=== PATIENT | female | born 1970 | race Caucasian/White ===

== ENCOUNTER 2024-09-08 10:02 | Outpatient (CLI) | payer OTHER, SELFPAY ==
--- NOTE | ~2024-09-08 | US_ITS ---
Limited Abdominal Sonogram: Real-time sonographic imaging of the right upper quadrant was performed. Clinical History: Abnormal serum enzyme levels Findings: The liver appears normal with no evidence of mass lesion or bile duct dilatation. Main por kyree vein demonstrates normal direction of flow. The gallbladder is well distended, and appears normal with no evidence of gallstone or wall thickening. The common bile duct measures 5 mm. The visualize d pancreas, aorta, and IVC are unremarkable. Impression: No significant abnormality seen. Reviewed, dictated and finalized at location M. Impression: No significant abnormality seen.
--- OUTSIDE RECORDS SUMMARY | 2024-09-08 11:22 | XMS_ITS | Clinical Summary ---
Author Organization [facility] [facility] Address [address] [place] [address] Care Team Providers Care General Road Supervisor Name Role Phone Arlene Amaya MD Primary Care Provider [phone] Allergies No known active allergies Medications levothyroxine 50 mcg tablet Take 50 mcg by mouth daily. Active Active Problems Problem Noted Date Diagnosed Date Menopausal and female climacteric states 020 Acquired hypothyroidism 12/08/2018 Encounters Date Type Department Care Team Description 08/05/2024 External Device Data [facility] Provider, Abstract 07/28/2024 External Device Data [facility] Provider, Abstract 07/28/2024 External Device Data [facility] Provider, Abstract 07/25/2024 External Device Data [facility] Provider, Abstract 07/24/2024 External Device Data [facility] Provider, Abstract 07/21/2024 External Device Data [facility] Provider, Abstract 07/07/2024 External Device Data [facility] Provider, Abstract 06/10/2024 External Device Data [facility] Provider, Abstract 06/10/2024 External Device Data [facility] Provider, Abstract from Last 3 Months Family History Medical History Relation Name Comments High Cholesterol Father Prostate Cancer Father Heart Disease Maternal Grandfather Mango COPD Maternal Grandmother COPD Mother Gina Diabetes Mother Gina Hypertension Mother Gina Heart Disease Paternal Grandfather Victorino Tuberculosis Paternal Grandmother Relation Name Status Comments Brother 1 Alive Brother 2 Alive Father Alive Maternal Grandfather Mango Maternal Grandmother Mother Gina Alive Paternal Grandfather Victorino Paternal Grandmother Sister 1 Alive Sister 2 Alive Sister 3 Alive Sister 4 Alive Son 1 Alive Son 2 Alive Social History Tobacco Use Types Packs/Day Years Used Date Smoking Tobacco: Never Smokeless Tobacco: Never Alcohol Use Standard Drinks/Week Comments Yes 2 (1 standard drink = 0.6 oz pur e alcohol) Moderate Feeling Safe Answer Date Recorded Within the last year, have y ou been afraid of your partner or ex-partner? No 12/08/2018 Within the last year, have y ou been humiliated or emotionally abused in other ways by your partner or ex-partner? No Within the last year, have y ou been kicked, hit, slapped, or otherwise physically hurt by your partner or ex-partner? No 12/08/2018 Within the last year, have y ou been raped or forced to have any kind of sexual activity by your partner or ex-partner? No 12/08/2018 Social Connections Answer Date Recorded In a typical week, how many times do you talk on the phone with family, friends, or neighbors? More than three times a week 12/08/2018 How often do you get togethe r with friends or relatives? More than three times a week 12/08/2018 How often do you attend chur or muslim services? More than 4 times per year 12/08/2018 Do you belong to any clubs o r organizations such as evangelical groups, unions, fraternal or athletic groups, or school groups? Yes 12/08/2018 How often do you attend meet ings of the clubs or organizations you belong to? Never 12/08/2018 Are you , , di vorced, , never , or living with a partner? 12/08/2018 Financial Resource Strain Answer Date R ecorded How hard is it for you to pa y for the very basics like food, housing, medical care, and heating? Not hard at all 12/08/2018 Food Insecurity Answer Date Recorded Within the past 12 months, y ou worried that your food would run out before you got the money to buy more. Never true 12/09/19 19 Within the past 12 months, t he food you bought just didn't last and you didn't have money to get more. Never true 12/08/2018 Transportation Needs Answer Date Record ed In the past 12 months, has l ack of transportation kept you from medical appointments or from getting medications? No 11/18 In the past 12 months, has l ack of transportation kept you from meetings, work, or from getting things needed for daily living? No 12/08/2018 Comments No Sex and Gender Information Value Date Recorded Sex Assigned at Not on file Legal Sex Female 10:49 PM CDT Gender Identity Not on file Sexual Orientation Not on file Last Filed Vital Signs Vital Sign Reading Time Taken Comments Blood Pressure 112/84 03/05/2024 9:02 AM CDT Pulse - - Temperature - - Respiratory Rate - - Oxygen Saturation - - Inhaled Oxygen Concentration - - Weight 64.9 kg (143 lb) 03/05/2024 9:02 AM CDT Height 162.6 cm (5' 4 ) 03/05/2024 9:02 AM CDT Body Mass Index 24.55 03/05/2024 9:02 AM CDT Plan of Treatment Upcoming Encounters Date Type Department Care Team (Late st Contact Info) Description 03/11/2025 9:00 AM CDT Office Visit [facility] [address] [address] [facility] [address] [place] [address] [place] [address] [facility] [address] [place] [address] Health Maintenance Due Date Last Done Comments DTAP/TDAP/TD VACCINES (1 - Tdap) 02/15/1987 HEPATITIS B VACCINES (1 of 3 - 19+ 3-dose series) 02/15/1987 COLORECTAL SCREENING 02/15/2013 Colorectal Cancer Screening 02/15/2013 FIT-DNA Q 3 years 02/15/2013 FIT/FOBT Q 1 year 02/15/2013 Flex Sig/CT Colonography Q 5 years 02/15/2013 ZOSTER VACCINE (1 of 2) 02/15/2018 INFLUENZA VACCINE (#1) 2023 PAP SMEAR 02/26/2025 02/26/2022, 01/20, 12/08/2018 BREAST CANCER SCREENING 03/14/2025 03/14/20 24, 03/09/2023, 03/02/2022, Additional history exists CERVICAL CANCER SCREENING 02/26/2027 HPV/Cotest (21-29) 02/26/2027 02/26/2022, 2021 HPV/Cotest (30-65) 02/26/2027 02/26/2022, 2021 Procedures Procedure Name Priority Date/Time Associated Diagnosis Comments MAMMO 3D JAJA SCREEN BILAT W OR WO CAD Routine 03/14/2024 9:52 AM CDT Encounter for screening mammogram for breast cancer CERV/VAG CYTO AGE BASED SCREEN PAP Routine 02/26/2022 3:39 PM CDT Pap smear for cervical cancer screening from Last 3 Months or Most Recently Relevant to Health Maintenance Results * MAMMO SCRN BILAT 3D JAJA W OR WO CAD (03/14/2024 9:52 AM CDT) Anatomical Region Laterality Modality Breast Bilateral Mammography 03/14/2024 9:52 AM CDT Impressions 03/14/2024 5:23 PM CDT IMPRESSION: No mammographic evidence of malignancy. RECOMMENDATIONS: Routine screening mammogram in one year. DICTATION LOCATION: [facility] Narrative 03/14/2024 5:23 PM CDT MAMMO 3D JAJA SCREEN BILAT W OR WO CAD DATE: 03/14/2024 9:52 AM HISTORY: Routine screening. TECHNIQUE: Full-field digital craniocaudal and mediolateral oblique projections of both breasts were obtained. Low-dose full-field digital breast tomosynthesis examination was performed with 3D acquisitions. Examination is read in conjunction with computer aided detection. COMPARISON: Mammograms dating back to 2019 BREAST COMPOSITION: There are scattered areas of fibroglandular density. FINDINGS: No suspicious mass, suspicious microcalcifications, or architectural distortion in either breast is identified. Since the prior study, there has been no significant interval change. The computer aided diagnosis detects no significant abnormality. OVERALL FINAL ASSESSMENT: BI-RADS CATEGORY 1 : Negative Procedure Note Sherie Latif MD - 03/14/2024 MAMMO 3D JAJA SCREEN BILAT W OR WO CAD DATE: 03/14/2024 9:52 AM HISTORY: Routine screening. TECHNIQUE: Full-field digital craniocaudal and mediolateral oblique projections of both breasts were obtained. Low-dose full-field digital breast tomosynthesis examination was performed with 3D acquisitions. Examination is read in conjunction with computer aided detection. COMPARISON: Mammograms dating back to 2019 BREAST COMPOSITION: There are scattered areas of fibroglandular density. FINDINGS: No suspicious mass, suspicious microcalcifications, or architectural distortion in either breast is identified. Since the prior study, there has been no significant interval change. The computer aided diagnosis detects no significant abnormality. OVERALL FINAL ASSESSMENT: BI-RADS CATEGORY 1 : Negative IMPRESSION: No mammographic evidence of malignancy. RECOMMENDATIONS: Routine screening mammogram in one year. DICTATION LOCATION: [facility] Lorelei Love MD MAMMO ORDERABLES Final Result * CERV/VAG CYTO AGE BASED SCREEN PAP (02/26/2022 3:39 PM CDT) COMMENT (PAP): [facility] [place] Comment: This order for age-based cervical cancer and STI screening follows ACOG guidelines(PB 168, 140, CRF031). See individual assays for performing site location. CLINICAL INFORMATION [facility] [place] Comment:None given LAST MENSTRUAL PERIOD [facility] [place] Comment:NONE GIVEN PREV PAP: [facility] [place] Comment:NONE GIVEN PREV BX: [facility] [place] Comment:NONE GIVEN SOURCE [facility] [place] Comment:Endocervix ADEQUACY: [facility] [place] Comment: Satisfactory for evaluation. Endocervical/transformation zone component present. Age and/or menstrual status not provided PAP INTERP [facility] [place] Comment:Negative for intraep ithelial lesion or malignancy. COMMENT (PAP TEST) [facility] [place] Comment: This Pap test has been evaluated with computer assisted technology. TRAINING LEAD: Saroj est Lissy Nunez Comment: YQ, CT(ASCP) CT screening location: [place] [address] [place] [address] EXPLANATORY NOTE Que Lissy Nunez Comment: EXPLANATORY NOTE: The Pap is a screening test for cervical cancer. It is not a diagnostic test and is subject to false negative and false positive results. It is most reliable when a satisfactory sample, regularly obtained, is submitted with relevant clinical findings and history, and when the Pap result is evaluated along with historic and current clinical information. HPV E6/E7 Not Detected Not Detected [facility] [place] Comment: Methodology: Medical Nurse-Mediated Amplification This assay detects E6/E7 viral messenger RNA (mRNA) from 14 high-risk HPV types (16,18,31,33,35,39,45,51,52,56,58,59,66,68). Cervical sources are required for HPV testing. If a vaginal source from a patient who has had a total hysterectomy with removal of cervix was submitted, please contact the testing laboratory for alternative testing options. For additional information, please refer to http://education.[employer]/faq/ACM703o2 (This link if provided for information/ educational purposes only.) Test Performed at: [facility] [address] [place] [address] Kishan Whyte D.O., MPH [facility] Genital SWAB OF ENDOCERVIX / Unknown 02/26/2022 3:39 PM CDT 02/27/2022 12:12 AM CDT Lorelei Love MD PATHOLOGY/CYTOLOGY ORD ERABLES Final Result [facility] [phone] [facility] [address] [place] [address] from Last 3 Months or Most Recently Relevant to Health Maintenance Insurance [employer]ESS Care Teams General Road Supervisor Relationship Specialty Start Date End Date Arlene Amaya MD [address] [place] [address] PCP - General Family Practice 10/16/18
== END 2024-09-08 10:03 | disposition home or self-care (01) ==
PROVIDERS: PCP Family Medicine; Visit Provider Student in an Organized Health Care Education/Training Program
DX: R74.8 Abnormal levels of other serum enzymes (principal)
CPT/HCPCS: 76705